=== PATIENT | male | born 1975 | race Caucasian/White ===

== ENCOUNTER 2024-08-13 12:35 | Outpatient (CLI) | payer OTHER, SELFPAY | END 2024-08-13 12:36 | disposition home or self-care (01) | LOC: NFLDUCREF 12:35 | DX: M25.462 Effusion, left knee (principal); M25.562 Pain in left knee | CPT/HCPCS: 86618 ==

== ENCOUNTER 2025-01-31 13:53 | Outpatient (CLI) | payer OTHER, SELFPAY ==
--- NOTE | 2025-01-31 14:45 | CRLHL7_ITS ---
For Patients: As a result of the Century Cures Act, medical imaging exams and procedure reports are released immediately into your electronic medical record. You may view this report before your referring provider. If you have questions, please contact your health care provider. INDICATION: Right upper extremity pain and swelling. TECHNIQUE: Ultrasound venous duplex upper right extremity. Compression venous exam was performed using escobar-scale, color Doppler, and spectral Doppler imaging. COMPARISON: None. FINDINGS: Deep veins: The visualized right internal jugular, subclavian, brachial, and axillary veins are fully compressible, demonstrate normal color flow, and normal response to mechanical augmentation. The Duplex Doppler waveforms are normal in appearance. Superficial veins: The visualized cephalic, and basilic veins are unremarkable. Soft tissue: Unremarkable. IMPRESSION: Normal ultrasound of the right upper extremity veins. Dictated by Reggie Scott MD @ 01/31/2025 2:44:42 PM (Electronically Signed)
== END 2025-01-31 13:54 | disposition home or self-care (01) ==
PROVIDERS: PCP Student in an Organized Health Care Education/Training Program; Visit Provider Physician Assistant
DX: M79.621 Pain in right upper arm (principal)
CPT/HCPCS: 93971